=== PATIENT | female | born 1980 | race African-American/Black ===

== ENCOUNTER 2017-03-01 09:31 | Emergency (ER) | payer MEDICAID, SELFPAY ==
[~2017-03-01] VITALS: Ht 170.2 cm; Wt 98.8 kg
[2017-03-01 09:34] VITALS: BP 140/92
[2017-03-01] MEDS ORDERED: KETOROLAC 30 MG/1 ML IM ONE (10:30)
[2017-03-01] MEDS ORDERED: KETOROLAC 30 MG/1 ML ONE (10:30)
== END 2017-03-01 10:52 | disposition home or self-care (01) ==
LOC: ED 10:37
DX: M46.1 Sacroiliitis, not elsewhere classified (principal)
CPT/HCPCS: 96372; 99283; J1885

== ENCOUNTER 2018-06-02 14:26 | Emergency (ER) | payer MEDICAID, OTHER ==
[~2018-06-02] VITALS: Ht 170.2 cm; Wt 99.5 kg
[2018-06-02 14:31] VITALS: BP 136/91
--- NOTE | 2018-06-02 15:18 | NUR ---
TASK RN: FIRST CONTACT WITH PT. Pt given discharge instructions and they have confirmed that they understand the instructions. Patient ambulatory with steady gait. Pt left with discharge paperwork, prescription, and all discharge paperwork, and all personal belongings.
== END 2018-06-02 15:20 | disposition home or self-care (01) ==
LOC: ED 15:19
DX: M67.471 Ganglion, right ankle and foot (principal); F17.200 Nicotine dependence, unspecified, uncomplicated
CPT/HCPCS: 99283